=== PATIENT | female | born 2000 | race Caucasian/White ===

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

== ENCOUNTER 2020-08-02 14:34 | Outpatient (RCR) | payer OTHER | END 2020-10-31 | disposition home or self-care (01) | LOC: WSST | DX: J38.3 Other diseases of vocal cords (principal) ==

== ENCOUNTER → 2022-01-07 | Outpatient (CLI) | payer OTHER | LOC: COL.RAD 12:05 | DX: N13.5 Crossing vessel and stricture of ureter without hydronephrosis (principal) | CPT/HCPCS: A9562; J1940 ==